=== PATIENT | female | born 1975 | race Caucasian/White ===

== ENCOUNTER 2017-06-05 05:51 | Day surgery (SDC) | payer BC, OTHER ==
[2017-06-05] MEDS ORDERED: NEOSTIGMINE METHYLSULFATE 1 MG/ML ML IV ONE (07:00)
[2017-06-05] MEDS ORDERED: METOCLOPRAMIDE HCL INJ 10 MG/2 ML VIAL ONE (07:00)
[2017-06-05] MEDS ORDERED: ONDANSETRON INJ 4 MG/2 ML VIAL ONE (07:00)
[2017-06-05] MEDS ORDERED: PROPOFOL 200 MG/20 ML VIAL IV ONE (07:00)
[2017-06-05] MEDS ORDERED: ATROPINE SULFATE INJ (MDV) 0.4 MG/ML 20ML VIAL ONE (07:00)
[2017-06-05] MEDS ORDERED: SODIUM CHL 0.9% 100ML MINI-BAG 100 ML IVPB ONE (07:11)
[2017-06-05] MEDS: LACTATED RINGERS 1,000 ML ONE (07:45)
[2017-06-05] MEDS ORDERED: LIDOCAINE 2 % GEL 5 ML TUBE TOP ONE (08:47)
[2017-06-05] MEDS ORDERED: ROCURONIUM BROMIDE 10 MG/ML VIAL ONE (08:47)
[2017-06-05] MEDS ORDERED: fentaNYL CITRATE INJ 50 MCG/ML AMP ONE (08:47)
[2017-06-05] MEDS ORDERED: MIDAZOLAM INJ 2 MG/2 ML VIAL ONE (09:00)
[2017-06-05] MEDS: ceFAZolin SODIUM 1 GM VIAL ONE (09:07)
[2017-06-05] MEDS: BUPIVACAINE 0.25% W/EPI 50 ML VIAL INJ ONE (09:35)
[2017-06-05] MEDS: HEPARIN SODIUM (PORCINE) 10,000 UNITS/ML VIAL ONE (09:39)
--- NOTE | 2017-06-05 10:59 | OP ---
DATE OF PROCEDURE: 06/05/17 PREOPERATIVE DIAGNOSIS: 1. Symptomatic cholelithiasis. POSTOPERATIVE DIAGNOSIS: 1. Chronic cholecystitis. 2. Cholesterolosis. PROCEDURE: 1. Laparoscopic cholecystectomy with intraoperative cholangiography. SURGEON: Tung Almonte MD. HOME COMPANION: None. ANESTHESIA: Local infiltration of 0.25% Marcaine with epinephrine and general endotracheal anesthesia. INDICATION: The patient is a 41-year-old female who presented to the right at [place] with a one year history of abdominal discomfort with radiation to the back , bloating, belching, nausea, vomiting, possibly associated with fatty food. She also has significant reflux symptoms. She was seen in the Emergency Room in [place] where they performed a CT scan which showed calcified gallstones. The patient was brought to the Surgical Suite today for cholecystectomy with cholangiography after the risks, benefits and alternatives to the procedure were discussed and accepted. FINDINGS: Gallbladder wall was thickened. Intraoperative cholangiography revealed free flow into the duodenum with no filling defects or strictures noted. An opening in the gallbladder revealed no stones, but the wall was very thickened and there was a small amount of cholesterolosis in the wall. DESCRIPTION OF PROCEDURE: After adequate general endotracheal anesthesia was obtained, the patient was prepped and draped in the usual sterile manner. Surgical time-out was taken. The infraumbilical area was infiltrated with 0.25 % Marcaine with epinephrine. A curvilinear incision was fashioned and carried down through the subcutaneous tissue to the midline fascia. Traction sutures were placed on either side of the midline. A small incision was made in the midline fascia and the peritoneum was opened bluntly. Zuhair trocar was introduced under direct vision into the abdominal cavity and fixed in place with the 20 mL balloon. CO2 was then insufflated until a pressure of 12 mmHg was reached and the abdomen was tympanitic in all four quadrants. When this was done, the laparoscope was introduced. The abdomen was inspected with the previously noted findings. The patient was then placed in reverse Trendelenburg position, turned to the left side. The upper abdominal ports were placed under direct vision. The gallbladder was grasped, retracted anteriorly and laterally. The neck of the gallbladder was retracted laterally. The triangle of Calot was then explored with the cystic duct and cystic artery identified and isolated. The cystic artery was identified by making a mario showing arterial bleeding. It was clipped twice proximally and once distally and divided. The cystic duct was hemoclipped once proximally. A small incision was made in the cystic duct. The cholangiogram catheter was introduced through a separate stab wound in the right upper quadrant and clipped in place. Cholangiograms were then taken using fluoroscopy which revealed free flow into the duodenum with no filling defects or strictures noted. When this was done, the cystic duct catheter was removed. The cystic duct was hemoclipped three times distally and divided between the hemoclips. The cystic artery was already divided. Another vessel was identified and clipped twice and divided. The gallbladder was then dissected free from the gallbladder bed of the liver using electrocautery. The gallbladder was removed from the infraumbilical port site in the usual manner under direct vision. When this was done, the subhepatic space and subphrenic space were irrigated copiously with saline. The effluent was noted to be clear. The lorri hepatis was inspected and no bleeding or bile leak was identified. The gallbladder bed of the liver was inspected and there was no bleeding there. The upper abdominal ports were removed under direct vision. There was bleeding from the middle port site. This was controlled with electrocautery. There was also bleeding from the cholangiogram catheter introducer site. This was also controlled with electrocautery. Again, the subphrenic space was irrigated with saline and evacuated. It was noted to be adry. When hemostasis was noted to be adequate in the port sites, the CO2, the laparoscope and the infraumbilical port were removed. The infraumbilical port site fascia was approximated with a single [id number] suture of 0 Vicryl. Subcutaneous tissue was irrigated with saline. Skin edges were approximated with 4-0 Vicryl subcuticular sutures , benzoin and Steri-Strips. Sterile dressings were applied. The patient was awakened and taken to the Recovery Room in good and stable condition. Estimated blood loss was less than 25 mL. All sponge, needle and instrument counts were correct. #[id number] [facility]
[2017-06-05] MEDS: MORPHINE SULFATE INJ 10 MG/ML VIAL ONE (11:10)
[2017-06-05 11:41] VITALS: BP 112/67; TEMP 98.1; O2SAT 97
== END 2017-06-05 12:45 | disposition home or self-care (01) ==
LOC: AMB 05:51
PROVIDERS: ATTEND Surgery
DX: K81.1 Chronic cholecystitis (principal); K21.9 Gastro-esophageal reflux disease without esophagitis; F17.210 Nicotine dependence, cigarettes, uncomplicated